=== PATIENT | female | born 1950 | race African-American/Black ===

== ENCOUNTER 2017-06-01 12:39 | Inpatient (IN) | payer BC, MEDICARE, OTHER ==
--- NOTE | 2017-06-01 12:55 | ER Document Report ---
ED Medical Screen (RME) - General Chief Complaint: Nausea/Vomiting Stated Complaint: PAIN IN STOMACH Time Seen by Provider: 06/01/17 12:52 Mode of Arrival: Wheelchair Information source: Patient TRAVEL OUTSIDE OF THE [place] IN LAST 30 DAYS: No - HPI Onset: Yesterday - 2129 LAST PM Onset/Duration: Sudden Quality of pain: Cramping, Dull Severity: Moderate Associated Symptoms: Nausea, Vomiting. denies: Chills, Diarrhea, Fever, Sweating Exacerbated by: Denies Relieved by: Denies Similar symptoms previously: No Recently seen / treated by doctor: No - Related Data Smoking: Non-smoker Frequency of alcohol use: None Drug Abuse: None Past Medical History - General Information source: Patient - Social History Cigarette use (# per day): No Chew tobacco use (# tins/day): No Frequency of alcohol use: None Drug Abuse: None Lives with: Family - Past Medical History Cardiac Medical History: Reports: Hx Hypertension Renal/ Medical History: Denies: Hx Peritoneal Dialysis Past Surgical History: Reports: Hx Hysterectomy. Denies: Hx Appendectomy, Hx Cholecystectomy Review of Systems - Review of Systems Constitutional: No symptoms reported EENT: No symptoms reported Cardiovascular: No symptoms reported Respiratory: No symptoms reported Gastrointestinal: See HPI Genitourinary: No symptoms reported Physical Exam - Vital signs Vitals: Temp Pulse Resp BP Pulse Ox 98.2 F 77 16 161/90 H 98 06/01/17 12:40 06/01/17 12:40 06/01/17 12:40 06/01/17 12:40 06/01/17 12:40 Interpretation: Hypertensive. No: Tachycardic, Tachypneic, Febrile - General General appearance: Alert, Other - APPEARS UNCOMFORTABLE - HEENT Head: Normocephalic Eyes: Normal Conjunctiva: Normal. No: Icteric Mouth/Lips: Normal Mucous membranes: Normal - Respiratory Respiratory status: No respiratory distress Course - Vital Signs Vital signs: Temp Pulse Resp BP Pulse Ox 98.2 F 77 16 161/90 H 98 06/01/17 12:40 06/01/17 12:40 06/01/17 12:40 06/01/17 12:40 06/01/17 12:40
[2017-06-01] MEDS ORDERED: ONDANSETRON HCL INJ/PF 4 MG/2 ML SDV IV ONE (12:58)
[2017-06-01 13:09] LABS: ABSOLUTE BASOPHILS # (AUTO) 0.1 10^3/uL (0.0-0.2); ABSOLUTE EOSINOPHILS # (AUTO) 0.2 10^3/uL (0.0-0.6); ABSOLUTE LYMPHOCYTES (AUTO) 1.4 10^3/uL (0.5-4.7); ABSOLUTE MONOCYTES (AUTO) 0.6 10^3/uL (0.1-1.4); ABSOLUTE NEUT (AUTO) 9.2 10^3/uL (1.7-8.2); BASOPHILS % (AUTO) 0.8 % (0-2); EOSINOPHILS % (AUTO) 1.8 % (0-6); HEMATOCRIT 38.6 % (36.0-47.0); HEMOGLOBIN 13.4 g/dL (12.0-15.5); HGB HCT DIFFERENCE 1.6; MEAN CORPUSCULAR HEMOGLOBIN 33.2 pg (27.0-33.4); MEAN CORPUSCULAR HGB CONC 34.7 g/dL (32.0-36.0); MEAN CORPUSCULAR VOLUME 96 fl (80-97); MONOCYTES % (AUTO) 5.3 % (3-13); RED BLOOD COUNT 4.03 10^6/uL (3.72-5.28); RED CELL DISTRIBUTION WIDTH 13.2 % (11.5-14.0); SEGMENTED NEUTROPHILS % (AUTO) 80.1 % (42-78); WHITE BLOOD COUNT 11.5 10^3/uL (4.0-10.5)
[2017-06-01 13:23] LABS: ALANINE AMINOTRANSFERASE 61 U/L (9-52); ALBUMIN 4.6 g/dL (3.5-5.0); ALKALINE PHOSPHATASE 101 U/L (38-126); ANION GAP 13 (5-19); ASPARTATE AMINO TRANSFERASE 36 U/L (14-36); BILIRUBIN,DIRECT 0.3 mg/dL (0.0-0.4); BILIRUBIN,TOTAL 0.8 mg/dL (0.2-1.3); BLOOD UREA NITROGEN 9 mg/dL (7-20); CALCIUM 10.3 mg/dL (8.4-10.2); CARBON DIOXIDE 25 mmol/L (22-30); CHLORIDE 100 mmol/L (98-107); CREATINE KINASE 112 U/L (30-135); CREATININE RESULT 0.86 mg/dL (0.52-1.25); GLUCOSE 147 mg/dL (75-110); LIPASE 105.3 U/L (23-300); POTASSIUM 3.9 mmol/L (3.6-5.0); SODIUM 137.9 mmol/L (137-145); TOTAL PROTEIN 7.6 g/dL (6.3-8.2)
[2017-06-01 13:29] LABS: AMORPHOUS SEDIMENT,URINE TRACE /HPF; APPEARANCE,URINE CLOUDY; BILIRUBIN,URINE NEGATIVE (NEGATIVE); GLUCOSE, URINE NEGATIVE (NEGATIVE); KETONES,URINE NEGATIVE (NEGATIVE); LEUKOCYTE ESTERASE,URINE SMALL (NEGATIVE); NITRITE,URINE NEGATIVE (NEGATIVE); PROTEIN,URINE NEGATIVE (NEGATIVE); URINE SPECIFIC GRAVITY 1.017; UROBILINOGEN,URINE NEGATIVE mg/dL (<2.0)
[2017-06-01 13:33] LABS: CREATINE KINASE MB 0.91 ng/mL (<4.55)
--- NOTE | 2017-06-01 13:34 | ER Document Report ---
ED GI/ - General Mode of Arrival: Wheelchair TRAVEL OUTSIDE OF THE [place] IN LAST 30 DAYS: No - HPI Onset: Yesterday - Refer to HPI notes <CELESTE RAMAN - Last Filed: 06/01/17 15:56> <MAURY HAND - Last Filed: 06/02/17 22:49> - General Chief Complaint: Nausea/Vomiting Stated Complaint: PAIN IN STOMACH Time Seen by Provider: 06/01/17 12:52 Notes: Patient is a 66 year old female presenting to the emergency department for nausea and vomiting onset this morning. Patient had multiple episodes of active emesis at the [facility] desk. Patient also has periumbilical abdominal pain which was onset last night around 21:00. Patient's symptoms were gradual. Patient took some tums and peptobismal and tried a cold cloth on abdomen and head; patient also had a headache and her abdomen feels distended. Patient has had emesis x4. Patient denies any diarrhea, fever, chills, blood stools, or dysuria. Patient had a burger for lunch yesterday and some apples yesterday afternoon. Patient was drinking nataliia melani and cannot keep anything down. Patient denies any abdominal surgeries or history of aneurysm. (CELESTE RAMAN) - Related Data Allergies/Adverse Reactions: Penicillins Allergy (Verified 06/01/17 17:26) Sulfa (Sulfonamide Antibiotics) Allergy (Verified 06/01/17 17:26) Home Medications: Current Home Medications Ascorbic Acid [Vitamin C with Yanira Hips] 1,000 mg PO QAM 06/01/17 [History] Ezetimibe [Zetia 10 mg Tablet] 10 mg PO QPM 06/01/17 [History] Fluticasone Propionate [Flonase Nasal [place] 50 Mcg/[place] 16 gm] 2 spray NASL QAM 06/01/17 [History] Hydrochlorothiazide 25 mg PO QPM 06/01/17 [History] Lisinopril [Zestril] 20 mg PO QPM 06/01/17 [History] Loratadine [Claritin 10 mg Tablet] 10 mg PO QAM 06/01/17 [History] Metformin HCl [Glucophage] 500 mg PO QAM 06/01/17 [History] Metoprolol Succinate [Toprol Xl 25 mg Tab.sr] 25 mg PO QPM 06/01/17 [History] Multivit-Min/FA/Lycopen/Lutein [Centravites 50 Plus Tablet] 1 tab PO QAM [History] [place]-3 Fatty Acids/Fish Oil [[place] 3 Fish Oil Softgel] 1 cap PO QAM 06/01/17 [ History] Omeprazole 20 mg PO QAM 06/01/17 [History] Oxybutynin Chloride [Ditropan Xl] 10 mg PO QPM 06/01/17 [History] Past Medical History - General Information source: Patient - Social History Smoking Status: Never Smoker Cigarette use (# per day): No Chew tobacco use (# tins/day): No Frequency of alcohol use: None Drug Abuse: None Lives with: Family Family History: None Patient has suicidal ideation: No Patient has homicidal ideation: No - Past Medical History Cardiac Medical History: Reports: Hx Hypercholesterolemia, Hx Hypertension Endocrine Medical History: Reports: Hx Diabetes Mellitus Type 2 GI Medical History: Reports: Hx Gastroesophageal Reflux Disease, Hx Hiatal Hernia - tx with medication Past Surgical History: Reports: Hx Hysterectomy - 1994 <CELESTE RAMAN - Last Filed: 06/01/17 15:56> Review of Systems - Review of Systems Constitutional: No symptoms reported EENT: No symptoms reported Cardiovascular: No symptoms reported Respiratory: No symptoms reported Gastrointestinal: See HPI, Abdomen distended, Abdominal pain, Nausea, Vomiting Genitourinary: No symptoms reported Female Genitourinary: No symptoms reported Musculoskeletal: No symptoms reported Skin: No symptoms reported Hematologic/Lymphatic: No symptoms reported Neurological/Psychological: See HPI, Headaches -: Yes All other systems reviewed and negative <CELESTE RAMAN - Last Filed: 06/01/17 15:56> Physical Exam - Vital signs Interpretation: Hypertensive <CELESTE RAMAN - Last Filed: 06/01/17 15:56> <MAURY HAND - Last Filed: 06/02/17 22:49> - Vital signs Vitals: Temp Pulse Resp BP Pulse Ox 98.2 F 77 16 161/90 H 98 06/01/17 12:40 06/01/17 12:40 06/01/17 12:40 06/01/17 12:40 06/01/17 12:40 - Notes Notes: GENERAL: Alert, interacts well. Mild distress. HEAD: Normocephalic, atraumatic. EYES: Appear normal. Pupils equal, round, and reactive to light. ENT: Moist mucus membranes, tongue midline. NECK: Full range of motion. Supple. Trachea midline. LUNGS: Clear to auscultation bilaterally, no wheezes, rales, or rhonchi. No respiratory distress. HEART: Regular rate and rhythm. 1/4 systolic ejection murmur. ABDOMEN: Soft, periumbilical tenderness to palpation. Non-distended. Normal bowel sounds. EXTREMITIES: Moves all 4 extremities spontaneously. Normal strength. No edema. Normal radial and dorsal pedal, good perfusion throughout. NEUROLOGICAL: Alert and oriented x3. Normal speech. No focal neurological deficits. GSC 15. PSYCH: Normal affect, normal mood. SKIN: Warm, dry, normal turgor. No rashes or lesions noted. (CELESTE RAMAN) Course - Laboratory Result Diagrams: 06/01/17 12:50 06/01/17 12:50 - Consults Dr. Ha Time consulted: 15:32 <CELESTE RAMAN - Last Filed: 06/01/17 15:56> - Laboratory Result Diagrams: 06/01/17 12:50 06/01/17 12:50 <MAURY HAND - Last Filed: 06/02/17 22:49> - Re-evaluation Re-evalutation: 06/01/17 15:31 Presents emerged from acute onset of severe abdominal pain and started last evening doubled her over was severe all night long. She initially described it as generalized and it became epigastric right upper quadrant surgery she has never had on her belly before was a hysterectomy. She denies any nausea vomiting or diarrhea with this. No chest pain shortness of breath vital signs are stable she is mildly tender epigastrium right upper quadrant with no guarding rebound rigidity or peritoneal signs. CT scan shows acute cholecystitis labs are stable pain is controlled with morphine nausea is controlled with Zofran. Talk to Dr. ha for surgery and is going to come down and evaluate the patient. 06/01/17 15:59 Here to see and evaluate patient is going admit patient to the hospital. (MAURY HAND) - Vital Signs Vital signs: Temp Pulse Resp BP Pulse Ox 98.3 F 75 15 116/67 93 06/02/17 20:00 06/02/17 20:00 06/02/17 20:00 06/02/17 20:00 06/02/17 20:00 - Laboratory Laboratory results interpreted by me: 06/01/17 06/01/17 06/01/17 12:50 12:50 12:50 WBC 11.5 H Seg Neutrophils % 80.1 H Lymphocytes % 12.0 L Absolute Neutrophils 9.2 H Glucose 147 H Calcium 10.3 H ALT 61 H Ur Leukocyte Esterase SMALL H - Consults Dr. Ha Reason for consultation: 06/01/17 15:[address] Ha for surgical consult; he will come evaluate the patient. 06/01/17 15:[address] Ha after his evaluation; he will admit the patient. (CELESTE RAMAN) Critical Care Note - Critical Care Note Total time excluding time spent on procedures (mins): 45 <MAURY HAND - Last Filed: 06/02/17 22:49> Discharge <CELESTE RAMAN - Last Filed: 06/01/17 15:56> - Discharge Admitting Provider: Surgicalist Unit Admitted: Surgical Floor <MAURY HAND - Last Filed: 06/02/17 22:49> - Discharge Clinical Impression: Acute cholecystitis Condition: Stable Disposition: ADMITTED INPATIENT Scribe Attestation: 06/01/17 15:59 I personally performed the services described in the documentation reviewed the documentation recorded by my scribe in my presence and it accurately and completely records my words and actions (MAURY HAND) Scribe Documentation - Scribe Written by Scribe:: Olimpia Nation, 06/01/17 14:42 acting as scribe for :: Simon <CELESTE RAMAN - Last Filed: 06/01/17 15:56>
[2017-06-01 13:36] LABS: TROPONIN I < 0.012 ng/mL
[2017-06-01] MEDS ORDERED: MORPHINE SULFATE 10 MG/ML INJ IV ONE (13:43)
--- NOTE | 2017-06-01 14:25 | RADIOLOGY REPORT (SQ) ---
EXAM DESCRIPTION: CT ABD/PELVIS WITH IV ONLY COMPLETED DATE/TIME: 06/01/2017 2:12 pm REASON FOR STUDY: abdominal pain COMPARISON: None. TECHNIQUE: CT scan of the abdomen and pelvis performed using helical scanning technique with dynamic intravenous contrast injection. No oral contrast. Images reviewed with lung, soft tissue, and bone windows. Reconstructed coronal and sagittal MPR images reviewed. Delayed images for evaluation of the urinary system also acquired. All images stored on PACS. All CT scanners at this facility use dose modulation, iterative reconstruction, and/or weight based d osing when appropriate to reduce radiation dose to as low as reasonably achievable (ALARA). [facility]: Dose Right [facility]: CareDose [facility]: Dose Right [facility]: Teradose 4D [facility]: Re.nooble CONTRAST TYPE AND DOSE: contrast/concentration: Isovue 370.00 mg/ml; Total Contrast Delivered: 100.0 ml; Total Saline Delivered: 72.0 ml RENAL FUNCTION: GFR > 60. RADIATION DOSE: Up-to-date CT equipment and radiation dose reduction techniques were employed. CTDIv ol: 17.4 - 20.3 mGy. DLP: 1861 mGy-cm.. LIMITATIONS: None. FINDINGS: LOWER CHEST: No significant findings. No nodules or infiltrates. LIVER: Normal size. No masses. No dilated ducts. SPLEEN: Normal size. No focal lesions. PANCREAS: No masses. No significant calcifications. No adjacent inflammation or peripancreatic fluid collections. Pancreatic duct not dilated. GALLBLADDER: Mild bladder contain stones is distended has mural thickening and surrounding inflammati on consistent with acute cholecystitis. ADRENAL GLANDS: No significant masses or asymmetry. RIGHT KIDNEY AND URETER: No solid masses. No significant calcifications. No hydronephrosis or hyd roureter. LEFT KIDNEY AND URETER: No solid masses. No significant calcifications. No hydronephrosis or hydr oureter. AORTA AND VESSELS: Scattered atherosclerotic calcifications. No aneurysm. No dissection. Renal arter ies, SMA, celiac without stenosis. RETROPERITONEUM: No retroperitoneal adenopathy, hemorrhage or masses. BOWEL AND PERITONEAL CAVITY: No masses or inflammatory changes. No free fluid or peritoneal masses. APPENDIX: Normal. PELVIS: No mass. No free fluid. Normal bladder. ABDOMINAL WALL: No masses. No significant hernias. BONES: Degenerative change without fracture or suspicious osseous lesion. OTHER: No other significant finding. IMPRESSION: ACUTE CHOLECYSTITIS. SURGICAL CONSULTATION RECOMMENDED. ULTRASOUND IS NOT INDICATED BA SED ON CT FINDINGS AND WILL ONLY DELAY FURTHER CARE PATIENT. TECHNICAL DOCUMENTATION: JOB ID: [id number] Quality ID # [id number]: Final reports with documentation of one or more dose reduction techniques (e.g., Au tomated exposure control, adjustment of the mA and/or kV according to patient size, use of iterative reconstruction technique) 2010 [employer]- All Rights Reserved
[2017-06-01] MEDS ORDERED: DEXTROSE 40% GEL 15 GM TUBE PO PRN ×2 (16:03)
[2017-06-01] MEDS ORDERED: GLUCAGON,HUMAN RECOMB 1 MG INJ IM PRN (16:03)
[2017-06-01] MEDS ORDERED: DEXTROSE 50%-WATER 25 GM/50 ML DISP.SYRIN IV PRN ×2 (16:03)
[2017-06-01] MEDS ORDERED: ONDANSETRON HCL INJ/PF 4 MG/2 ML SDV IV PRN (16:03)
--- NOTE | 2017-06-01 16:29 | HISTORY AND PHYSICAL E ---
History and Physical NAME: MARCUS KATE : 1950 AGE: 66Y ADMITTED: 06/01/2017 ROOM: ED16 CHIEF COMPLAINT: Abdominal pain, nausea, and vomiting. REFERRING PHYSICIAN: Patient seen at the request of Dr. Roche HISTORY OF PRESENTING ILLNESS: The patient is a 66-year-old female, previously healthy, who presents to the emergency department complaining of acute onset abdominal pain, nausea, and vomiting that started last night and persisted until this morning. She denies previous episodes. Last bowel movement yesterday, which was loose, but no diarrhea. She has had multiple episodes of nausea and vomiting in the emergency department. She was worked up and found by CT scan of the abdomen and pelvis to have evidence of acute cholecystitis with cholelithiasis. Surgery was consulted. She was advised admission. PAST MEDICAL HISTORY: Past medical history significant for: 1. Overnight. 2. Hypercholesterolemia. 3. Hypertension. 4. Diabetes mellitus type 2. 5. Hiatal hernia. PAST SURGICAL HISTORY: Past surgical history significant for: 1. Hysterectomy. 2. 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 SOCIAL HISTORY: The patient does not drink or smoke cigarettes. She exercises 3 times a week. REVIEW OF SYSTEMS: CONSTITUTIONAL: Patient denies. ENT: Patient denies. CARDIOVASCULAR: Patient denies. GASTROINTESTINAL: As per HPI. MUSCULOSKELETAL: Patient denies. PHYSICAL EXAMINATION: GENERAL: Patient examined in the emergency department, room 16, at approximately 3:30 p.m. She is in no acute distress. HEAD/EYES: Without icterus. NECK: No lymphadenopathy. LUNGS: Clear to auscultation bilaterally. HEART: Without murmur or gallop. ABDOMEN: Soft. No peritoneal signs. There is tenderness in the right upper quadrant to moderate palpation. Scar in umbilical area consistent with previous hysterectomy. EXTREMITIES: Upper and lower extremities otherwise unremarkable. DIAGNOSTIC DATA: Laboratory: white blood cell count 11,500; hemoglobin of 13.4. Electrolytes within normal limits. Calcium of 10.3. Blood sugar 147. LFT's show a total bilirubin of 0.8 and an AST of 61. Lipase of 105. CT scan of the abdomen and pelvis shows distended gallbladder with gallstones, otherwise no free air or free fluid. IMPRESSION: Acute cholecystitis with cholelithiasis in 66-year-old diabetic female. RECOMMENDATIONS: 1. Admit, IV fluids, intravenous antibiotics. 2. Set up for interval laparoscopic, possible open, cholecystectomy in the morning; I will go over the details of the operation in the near future. I explained to the patient that she is at risk for clinical deterioration if she defers surgical intervention. DICTATING PHYSICIAN: JUNIOR WILDER M.D. [id number] PHY#: [id number] ID: [id number] JOB#: [id number] ACCT: [id number] cc:JUNIOR WILDER M.D. > MTDD
[2017-06-01] MEDS ORDERED: LISINOPRIL 10 MG TABLET PO SCH (18:45)
[2017-06-01] MEDS: POTASSI CL 20 MEQ/NS 1L 1,000 ML IV PRN (20:14)
[2017-06-01] MEDS: OXYBUTYNIN CHLORIDE 5 MG TABLET PO SCH (21:41)
[2017-06-01] MEDS: CIPROFLOXACIN 400 MG/D5W RTU 200 ML IV SCH (21:42)
[2017-06-01] MEDS: INSULIN REG, HUMAN 100 UNIT/ML 3 ML VIAL (PYX) SUBCUT PRN (21:50)
[2017-06-01] MEDS: MORPHINE SULFATE 10 MG/ML INJ IV PRN (22:42)
[2017-06-02] MEDS: POTASSI CL 20 MEQ/NS 1L 1,000 ML IV PRN (04:50)
[2017-06-02] MEDS: INSULIN REG, HUMAN 100 UNIT/ML 3 ML VIAL (PYX) SUBCUT PRN (07:22)
[2017-06-02] MEDS: MORPHINE SULFATE 10 MG/ML INJ IV PRN (07:47)
[2017-06-02] MEDS: LANSOPRAZOLE 15 MG TAB.RAP.DR PO SCH (07:58)
[2017-06-02] MEDS ORDERED: [UNRECOGNIZED DRUG - OTHER] PO SCH (08:00)
[2017-06-02] MEDS: OMEGA-3 ACID ETHYL ESTERS 1 GM CAPSULE PO SCH (09:43)
[2017-06-02] MEDS: LORATADINE 10 MG TABLET PO SCH (09:43)
[2017-06-02] MEDS: METFORMIN HCL 500 MG TABLET PO SCH (09:43)
[2017-06-02] MEDS: ASCORBIC ACID 500 MG TABLET PO SCH (09:44)
[2017-06-02] MEDS: CIPROFLOXACIN 400 MG/D5W RTU 200 ML IV SCH ×2 (09:44→21:42)
[2017-06-02] MEDS: FLUTICASONE NASAL SPRAY 50 MCG/SPRY 120 SPRAY/16 GM NASL SCH (09:46)
[2017-06-02] MEDS: OXYBUTYNIN CHLORIDE 5 MG TABLET PO SCH ×2 (09:50→21:42)
[2017-06-02] MEDS ORDERED: FENTANYL CITRATE INJ/PF 100 MCG/2 ML AMPUL ONE ×3 (10:38)
[2017-06-02] MEDS ORDERED: PROPOFOL INJ 200 MG/20 ML VIAL IV ONE (10:39)
[2017-06-02] MEDS ORDERED: ACETAMINOPHEN 100 ML IV ONE (10:39)
[2017-06-02] MEDS ORDERED: HYDROMORPHONE HCL INJ/PF 2 MG/ML AMPULE ONE (10:39)
[2017-06-02] MEDS ORDERED: MIDAZOLAM 2 MG/2 ML INJ ONE (10:39)
[2017-06-02] MEDS ORDERED: BUPIVACAINE HCL 0.25 % INJ/PF (2.5 MG/1 ML) 30 ML VIAL ONE (11:10)
[2017-06-02] MEDS ORDERED: PROMETHAZINE HCL INJ 25 MG/1 ML VIAL IV PRN (11:45)
[2017-06-02] MEDS ORDERED: DIPHENHYDRAMINE HCL 50 MG/ML VIAL IV PRN (11:45)
[2017-06-02] MEDS ORDERED: FENTANYL CITRATE INJ/PF 100 MCG/2 ML AMPUL IV PRN ×3 (11:45)
[2017-06-02] MEDS ORDERED: MORPHINE SULFATE 10 MG/ML INJ IV PRN ×2 (11:45→13:26)
--- NOTE | 2017-06-02 13:10 | EKG REPORT ---
SEVERITY:- ABNORMAL ECG - SINUS RHYTHM PROBABLE LEFT ATRIAL ABNORMALITY PROBABLE LEFT VENTRICULAR HYPERTROPHY BORDERLINE T ABNORMALITIES, INFERIOR LEADS : Confirmed by: Karlie Panchal MD 02-Jun-2017 13:10:05
[2017-06-02] MEDS ORDERED: ONDANSETRON HCL INJ/PF 4 MG/2 ML SDV IV PRN (13:26)
--- NOTE | 2017-06-02 13:40 | Operative Report ---
Operative Report DATE OF SURGERY: 06/02/17 PREOPERATIVE DIAGNOSIS: Acute cholecystitis with cholelithiasis POSTOPERATIVE DIAGNOSIS: Same with biliary hydrops OPERATION: 1. Laparoscopic cholecystectomy. 2. Extremely difficult modifier SURGEON: JUNIOR WILDER ANESTHESIA: GA TISSUE REMOVED OR ALTERED: 1 gallbladder with stones COMPLICATIONS: None ESTIMATED BLOOD LOSS: 50 cc INTRAOPERATIVE FINDINGS: See below PROCEDURE: The patient was seen in the preop holding area then taken to the operating room where general anesthesia was induced. Arms were abducted, abdomen was exposed, prepped and draped sterile fashion. Surgical plan and surgical timeout were conducted. Supraumbilical vertical incision was made after anesthetizing the skin with quarter percent Marcaine. Veress needle was inserted peritoneal cavity pneumoperitoneum established. Veress needle was removed, and a 5 mm port inserted and a 5 mm viewing scope was inserted. Under direct visualization 3 additional ports were placed all 5 mm, one in the subxiphoid and 2 in the subcostal position. Findings are significant for an acutely inflamed extremely enlarged gallbladder. We used a laparoscopic trocar to aspirate approximately 150 cc of almost clear bile from the lumen of gallbladder. Specimen contents was disposed of There were adhesions between the gallbladder and the gastroduodenal area and these were taken down using a combination of sharp, blunt, and LigaSure dissection. Once this was achieved we are able to elevate the infundibulum up off of the duodenal area. Again filmy adhesions were taken down bluntly. I did begin opening up the area adjacent to the neck of the gallbladder but due to extreme edema, and tissue distortion, I felt that a top down approach was indicated. Therefore graspers were repositioned and we began the top down approach. Approximately 1 hour. That is why the extremely difficult modifier is applied. This was an extremely long gallbladder close to 15 cm by estimate. The manipulation and tedious nests of dealing with the edema, electrocautery smoke etc. required a lot of work to get the gallbladder down approximately half way towards its released from the inferior surface of the liver. At this point I felt that amputating half of the gallbladder would ease the dissection somewhat therefore 5 mm port was switched over at the sub-xiphoid position to a 12 mm port in an Endo OLU stapler, 45, blue load, was used to transect the gallbladder thereby removing the distal third. The distal third remnant was left in the peritoneal cavity We now repositioned our graspers and continued the meticulous dissection all the way down such that the gallbladder was suspended by small little vascular tributaries likely branch of the cystic artery, and a somewhat elongated cystic duct. Of note there was a moderate amount of bleeding 25-50 cc from the lateral surface of the liver attached to the lateral reflection of the gallbladder. This is managed with multiple clips. We cleaned off the neck of the gallbladder is it tapered towards the 2 critical structures. Small cystic artery branches were clipped. At this point the gallbladder suspended solely from the cystic duct as it funneled out towards the neck of the gallbladder. Photos were taken. An Endoloop was placed on the gallbladder side of the cystic duct and secured. We now opened the cystic duct, with scissors, and began to milk out multiple small and medium size stones including gravel. This took approximately 15-20 minutes and eventually we had reasonably clear bile emanating from the cystic duct stump. We secured the cystic duct stump with a 3-0 PDS suture continue to completely amputate the gallbladder from the cystic duct. Both specimens that is the distal third, and proximal two thirds of the gallbladder as well as multiple stones were placed in an Endobag. The Endobag was introduced to the anterior abdominal wall at the supraumbilical port site after switching out that 5 mm port with a 12 mm port. Significant spillage of stones. Specimen was passed off to pathology. We returned the peritoneal cavity check for bleeding there was none. Because of the tedious operation, the extensive dissection, edema and some bleeding, a large Tavo drain was placed through 1 of the right upper quadrant port sites. It was trimmed to appropriate length, secured to the skin with 3-0 ethilon. We returned the peritoneal cavity check for bleeding there was none. Sponge and counts correct. There was no evidence of visceral injury. No nasogastric tube was inserted. All ports removed under direct visualization fascia closed with multiple figure- of-eight 0 Vicryl sutures, skin closed with 3-0 Vicryl benzoin and Steri-Strips. Again the reason for the extremely difficult modifier was the extensive adhesions, edema, acute inflammation, elongated size of the gallbladder requiring a lot of work a lot of manipulation and increased time. Thank you
[2017-06-02] MEDS ORDERED: IBUPROFEN INJ 800 MG/8 ML VIAL IV ONE (13:47)
[2017-06-02] MEDS ORDERED: LEVALBUTEROL HCL NEB 0.63 MG/3 ML AMPUL NEB ONE (15:02)
[2017-06-02] MEDS ORDERED: IPRATROPIUM/ALBUTEROL 0.5-2.5 MG/3 ML AMPUL NEB ONE ×2 (15:08→16:00)
[2017-06-02] MEDS ORDERED: ROCURONIUM BROMIDE INJ 50 MG/5 ML VIAL IV ONE (16:05)
[2017-06-02] MEDS ORDERED: SUCCINYLCHOLINE CHLORIDE INJ 200 MG/10 ML VIAL ONE (16:05)
[2017-06-02] MEDS ORDERED: GLYCOPYRROLATE INJ 0.4 MG/2 ML VIAL ONE (16:05)
[2017-06-02] MEDS ORDERED: LIDOCAINE 2% INJ-PF (20 MG/ML) 10 ML AMPUL ONE (16:05)
[2017-06-02] MEDS ORDERED: NEOSTIGMINE METHYLSULFATE 10 MG/10 ML VIAL ONE (16:05)
[2017-06-02] MEDS ORDERED: ONDANSETRON HCL INJ/PF 4 MG/2 ML SDV ONE (16:05)
[2017-06-02] MEDS ORDERED: DEXAMETHASONE SOD PHOSPHATE INJ 4 MG/1 ML VIAL ONE (16:05)
[2017-06-02] MEDS ORDERED: HYDROCHLOROTHIAZIDE 25 MG TABLET PO SCH (18:00)
[2017-06-02] MEDS ORDERED: METOPROLOL SUCCINATE 25 MG TAB.SR.24H PO SCH (18:00)
[2017-06-02] MEDS ORDERED: EZETIMIBE 10 MG TABLET PO SCH (18:00)
[2017-06-02] MEDS: KETOROLAC TROMETHAMINE INJ/PF 30 MG/1 ML SDV IV PRN (21:43)
[2017-06-03] MEDS: POTASSI CL 20 MEQ/NS 1L 1,000 ML IV PRN ×2 (00:44→07:23)
[2017-06-03] MEDS: KETOROLAC TROMETHAMINE INJ/PF 30 MG/1 ML SDV IV PRN (05:31)
[2017-06-03] MEDS: CIPROFLOXACIN 400 MG/D5W RTU 200 ML IV SCH (09:15)
[2017-06-03] MEDS: ASCORBIC ACID 500 MG TABLET PO SCH (09:16)
[2017-06-03] MEDS: OMEGA-3 ACID ETHYL ESTERS 1 GM CAPSULE PO SCH (09:16)
[2017-06-03] MEDS: LORATADINE 10 MG TABLET PO SCH (09:16)
[2017-06-03] MEDS: METFORMIN HCL 500 MG TABLET PO SCH (09:16)
[2017-06-03] MEDS: LANSOPRAZOLE 15 MG TAB.RAP.DR PO SCH (09:17)
[2017-06-03] MEDS: OXYBUTYNIN CHLORIDE 5 MG TABLET PO SCH (09:26)
[2017-06-03] MEDS: FLUTICASONE NASAL SPRAY 50 MCG/SPRY 120 SPRAY/16 GM NASL SCH (09:26)
[2017-06-03 11:25] VITALS: BP 118/65
--- NOTE | 2017-06-05 19:38 | DISCHARGE SUMMARY E ---
Discharge Summary NAME: MARCUS KATE : 1950 AGE: 66Y ADMITTED: 06/01/2017 DISCHARGED: 06/03/2017 SUMMARY OF ITALIZATION: The patient is a 66-year-old -[place] female who presents to the emergency department complaining of acute-onset abdominal pain. She was evaluated and found to have findings consistent with acute cholecystitis with cholelithiasis. She was admitted to the surgicalist service, kept NPO on IV fluids. The following day she was taken to the operating room by Dr. Ha and underwent laparoscopic cholecystectomy. She was found to have an acutely inflamed gallbladder. The operation proceeded uneventfully. Her final pathology report showed acute and chronic cholecystitis with mucosal erosion. Postoperatively she did well, and her drain was removed the first postoperative day. She was discharged home later that afternoon. FINAL DIAGNOSIS: Acute and chronic cholecystitis/cholelithiasis status post laparoscopic cholecystectomy by Dr. Ha. DISPOSITION: The patient was discharged home to the care of her family, follow up with Dr. Ha in approximately 1 week at [facility]. Prescription for postoperative pain management provided. DICTATING PHYSICIAN: JUNIOR HA M.D. [id number] PHY#: [id number] ID: [id number] JOB#: [id number] ACCT: [id number] cc:JUNIOR HA M.D. >
== END 2017-06-03 11:00 | disposition home or self-care (01) | DRG 419 ==
LOC: ER 12:39 → EH 16:04 → 4N 18:00
PROVIDERS: ADMIT Surgery; ATTEND Surgery
PROC: 0FT44ZZ Resection of Gallbladder, Percutaneous Endoscopic Approach (ICD-10-PCS; principal; 2017-06-02 10:30)
DX: K80.12 Calculus of gallbladder with acute and chronic cholecystitis without obstruction (principal); E78.00 Pure hypercholesterolemia, unspecified; I10 Essential (primary) hypertension; E11.9 Type 2 diabetes mellitus without complications; K44.9 Diaphragmatic hernia without obstruction or gangrene; K21.9 Gastro-esophageal reflux disease without esophagitis; Z90.710 Acquired absence of both cervix and uterus; Z88.0 Allergy status to penicillin; Z88.2 Allergy status to sulfonamides; Z79.899 Other long term (current) drug therapy
CPT/HCPCS: 36415; 74177; 790; 80053; 81001; 82550; 82553; 82962; 83690; 84484; 85025; 87086; 87088; 88304; 93005; 93010; 96374; 96375; 99291; J0131; J0330; J0744; J1100; J1170; J1741; J1815; J1885; J2250; J2270; J2405; J2704; J3010; J3480; J3490